=== PATIENT | female | born 1995 | race Caucasian/White ===

== ENCOUNTER 2017-01-01 14:48 | Emergency (ER) | payer SELFPAY ==
--- NOTE | 2017-01-01 14:58 | ED.PDOC ---
History of Present Illness - General Chief Complaint: General Stated Complaint: Patient wanted to find out if she was Time Seen by Provider: 01/01/17 14:53 Source: patient, RN notes reviewed Exam Limitations: no limitations Additional Information: Pt states she is not sure if she is . She would like a test. Pt is not in any distress. She states she can only hold down chicken strips. She said she was dry heaving a lot 4 days ago. She also reports spotting the past several weeks. - History of Present Illness Timing/Duration: unsure Severity: mild Improving Factors: nothing Worsening Factors: nothing Associated Symptoms: denies symptoms Allergies/Adverse Reactions: Allergies NO KNOWN ALLERGY Allergy (Verified 01/01/17 14:58) Home Medications: Ambulatory Orders Ondansetron [Ondansetron Odt] 4 mg PO TID PRN #12 tab 01/01/17 Review of Systems - Review of Systems Constitutional: States: no symptoms reported EENTM: States: no symptoms reported Respiratory: States: no symptoms reported Cardiology: States: no symptoms reported Gastrointestinal/Abdominal: States: nausea - States she can only hold down chicken strips Genitourinary: States: no symptoms reported Musculoskeletal: States: no symptoms reported Skin: States: no symptoms reported Neurological: States: no symptoms reported Endocrine: States: no symptoms reported Hematologic/Lymphatic: States: no symptoms reported Physical Exam - Physical Exam General Appearance: Alert, Comfortable, No apparent distress, Well Developed, Well Groomed, Well Hydrated, Well Nourished Eye Exam: bilateral normal Ears, Nose, Throat: hearing grossly normal, normal ENT inspection Neck: non-tender, full range of motion, supple Respiratory: no respiratory distress, no accessory muscle use Cardiovascular/Chest: regular rate, rhythm Gastrointestinal/Abdominal: soft Extremity: normal range of motion 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 Pt wanted a test. hCG negative. Pt stable for d/c home with Rx for Zofran. - Results/Orders Results/Orders: Laboratory Results - last 24 hr 01/01/17 14:53 Urine HCG, Qual Negative Departure - Departure Clinical Impression: Nausea Time of Disposition: 15:16 Disposition: Discharge to Home or Self Care Condition: Good Instructions: DI for Nausea -- Adult Prescriptions: Ondansetron [Ondansetron Odt] 4 mg PO TID PRN #12 tab PRN Reason: Nausea Home Medications: Ambulatory Orders Ondansetron [Ondansetron Odt] 4 mg PO TID PRN #12 tab 01/01/17 Additional Instructions: Stay well hydrated. Follow-up with a primary care provider if your symptoms persist in 3 to 5 days.
[2017-01-01 15:48] VITALS: BP 129/83; TEMP 98.2; O2SAT 97
== END 2017-01-01 15:35 | disposition home or self-care (01) ==
LOC: ER 14:48
DX: Z32.02 Encounter for pregnancy test, result negative (principal); R11.0 Nausea